=== PATIENT | female | born 1985 | race Caucasian/White ===

== ENCOUNTER 2017-10-14 00:20 | Inpatient (IN) | payer BC ==
[~2017-10-14] VITALS: Ht 175.3 cm; Wt 129.3 kg
[2017-10-14] MEDS ORDERED: LR 1,000 ML IV SCH ×3 (00:35→13:14)
[2017-10-14] MEDS ORDERED: AMPICILLIN SODIUM 2 GM in NS 100 ML IV ONE (01:00)
[2017-10-14] MEDS ORDERED: AMPICILLIN SODIUM 2 GM VIAL ONE (01:00)
[2017-10-14] MEDS ORDERED: CEFAZOLIN 2 GM IVPB PREMIX 50 ML IV SCH (01:00)
[2017-10-14 01:09] LABS: BASOPHILS % (AUTO) 0.2 % (0.0-2.0); EOSINOPHILS % (AUTO) 0.3 % (0.0-4.0); HEMATOCRIT 37.2 % (36-48); HEMOGLOBIN 12.4 g/dL (12.0-16.0); LYMPHOCYTES % (AUTO) 21.6 % (20.5-51.5); MEAN CORPUSCULAR HEMOGLOBIN 31 pg (27-31); MEAN CORPUSCULAR HGB CONC 33 % (32-36); MEAN CORPUSCULAR VOLUME 92 fL (79.0-98.0); MONOCYTES # (AUTO) 0.6 K/uL (0.0-1.0); MONOCYTES % (AUTO) 6.7 % (1.7-9.3); NEUTROPHILS # (AUTO) 6.6 K/uL (1.8-7.7); NEUTROPHILS % (AUTO) 71.2 % (40.0-70.0); PLATELET COUNT (AUTO) 270 K/uL (130-430); RED BLOOD CELL COUNT(AUTO) 4.05 MIL/uL (4.2-6.2); RED CELL DISTRIBUTION WIDTH 13.3 % (9.0-15.0); WHITE BLOOD COUNT (AUTO) 9.2 K/uL (4.8-10.8)
[2017-10-14] MEDS ORDERED: TERBUTALINE SULFATE 1 MG/ML VIAL SUBCUT ONE (02:00)
[2017-10-14] MEDS ORDERED: AMPICILLIN SODIUM 1 GM in NS 50 ML IV SCH (05:00)
[2017-10-14] MEDS ORDERED: AMPICILLIN SODIUM 1 GM VIAL ONE (05:24)
[2017-10-14] MEDS ORDERED: ONDANSETRON HCL 4 MG/2 ML VIAL IVP PRN (09:45)
[2017-10-14] MEDS ORDERED: DIPHENHYDRAMINE INJ 50 MG/ML VIAL IM PRN (09:45)
[2017-10-14] MEDS ORDERED: MORPHINE SULFATE 10MG/10ML PF AMP SP SCH (09:45)
[2017-10-14] MEDS ORDERED: NALOXONE HCL 0.4 MG/ML AMP (NARCAN) IVP PRN (09:45)
[2017-10-14] MEDS ORDERED: KETOROLAC TROMETHAMINE 60 MG/2 ML VIAL IM PRN (09:45)
[2017-10-14] MEDS ORDERED: MIDAZOLAM HCL 5 MG/ML VIAL (VERSED) IV ONE (10:05)
[2017-10-14] MEDS ORDERED: OXYTOCIN 10 UNIT/ML VIAL IV ONE (10:05)
[2017-10-14] MEDS ORDERED: ONDANSETRON HCL 4 MG/2 ML VIAL IVP ONE (10:05)
[2017-10-14] MEDS ORDERED: LR 1,000 ML IV.SOLN IV ONE (10:05)
[2017-10-14] MEDS ORDERED: MORPHINE SULFATE 10MG/10ML PF AMP EP ONE (10:05)
[2017-10-14] MEDS ORDERED: NS IRRIG SOLN 1000 ML IR ONE (10:05)
[2017-10-14] MEDS ORDERED: DIPHENHYDRAMINE INJ 50 MG/ML VIAL ONE (10:10)
[2017-10-14 10:22] VITALS: BP_SYST 101
[2017-10-14] MEDS ORDERED: OXYTOCIN/NORMAL SALINE 1,000 ML IV ONE ×2 (10:38→13:14)
[2017-10-14] MEDS ORDERED: SENNOSIDES/DOCUSATE SODIUM 1 TAB TABLET(SENOKOT-S) PO PRN (13:15)
[2017-10-14] MEDS ORDERED: SIMETHICONE 80 MG TAB.CHEW PO PRN (13:15)
[2017-10-14] MEDS ORDERED: ANUSOL 1 EA SUPP.RECT (PREPARATION H) RC PRN (13:15)
[2017-10-14] MEDS ORDERED: MEASLES,MUMPS&RUBELLA VACC/PF 12500 UNIT/0.5 ML VIAL SUBQ PRN (13:15)
[2017-10-14] MEDS ORDERED: RHO(D) IMMUNE GLOBULIN/MALTOSE 1500 UNITS/1.3 ML (WINHRO) IM PRN (13:15)
[2017-10-14] MEDS ORDERED: HYDROcodone/ACETAMIN 5-325 MG TAB (NORCO/ VICODIN) PO PRN (13:15)
[2017-10-14] MEDS ORDERED: OXYCODONE/ACETAMINOPHEN 5-325 TABLET PO PRN (13:15)
[2017-10-14] MEDS ORDERED: BISACODYL 10 MG/SUPPOSITORY RC PRN (13:15)
[2017-10-14] MEDS ORDERED: LANOLIN 7 GM OINT. TP PRN (13:15)
[2017-10-14] MEDS: CEFAZOLIN 1 GM IVPB PREMIX 50 ML IV SCH (15:35)
[2017-10-14] MEDS: KETOROLAC TROMETHAMINE 30 MG VIAL IVP SCH (18:55)
[2017-10-14] MEDS ORDERED: TEMAZEPAM 15 MG CAPSULE PO PRN (21:00)
[2017-10-15] MEDS: KETOROLAC TROMETHAMINE 30 MG VIAL IVP SCH ×3 (00:21→11:57)
[2017-10-15] MEDS: CEFAZOLIN 1 GM IVPB PREMIX 50 ML IV SCH ×2 (00:21→06:05)
[2017-10-15 06:21] LABS: BASOPHILS % (AUTO) 0.1 % (0.0-2.0); EOSINOPHILS % (AUTO) 0.2 % (0.0-4.0); HEMATOCRIT 30.3 % (36-48); HEMOGLOBIN 10.3 g/dL (12.0-16.0); LYMPHOCYTES % (AUTO) 21.5 % (20.5-51.5); MEAN CORPUSCULAR HEMOGLOBIN 31 pg (27-31); MEAN CORPUSCULAR HGB CONC 34 % (32-36); MEAN CORPUSCULAR VOLUME 91 fL (79.0-98.0); MONOCYTES # (AUTO) 0.7 K/uL (0.0-1.0); MONOCYTES % (AUTO) 7.3 % (1.7-9.3); NEUTROPHILS # (AUTO) 6.5 K/uL (1.8-7.7); NEUTROPHILS % (AUTO) 70.9 % (40.0-70.0); PLATELET COUNT (AUTO) 213 K/uL (130-430); RED BLOOD CELL COUNT(AUTO) 3.32 MIL/uL (4.2-6.2); RED CELL DISTRIBUTION WIDTH 12.9 % (9.0-15.0); WHITE BLOOD COUNT (AUTO) 9.2 K/uL (4.8-10.8)
[2017-10-15] MEDS: OXYCODONE/ACETAMINOPHEN 5-325 TABLET PO PRN (07:50)
[2017-10-15] MEDS: IBUPROFEN 600 MG TABLET PO SCH ×2 (18:51→23:56)
[2017-10-15] MEDS: DOCUSATE SODIUM 100 MG CAPSULE PO PRN (21:35)
[2017-10-16] MEDS: IBUPROFEN 600 MG TABLET PO SCH ×2 (06:02→12:03)
[2017-10-16] MEDS: DOCUSATE SODIUM 100 MG CAPSULE PO PRN (08:30)
[2017-10-16] MEDS: OXYCODONE/ACETAMINOPHEN 5-325 TABLET PO PRN ×2 (08:32→12:29)
== END 2017-10-16 15:55 | disposition home or self-care (01) | DRG 766 ==
LOC: SPU 00:20
PROVIDERS: ADMIT Specialist; ATTEND Specialist
PROC: 10D00Z1 Extraction of Products of Conception, Low, Open Approach (ICD-10-PCS; principal; 2017-10-15)
PROC: 0UL70CZ Occlusion of Bilateral Fallopian Tubes with Extraluminal Device, Open Approach (ICD-10-PCS; 2017-10-15)
DX: O42.913 Preterm premature rupture of membranes, unspecified as to length of time between rupture and onset of labor, third trimester (principal); O34.211 Maternal care for low transverse scar from previous cesarean delivery; Z37.0 Single live birth; Z3A.36 36 weeks gestation of pregnancy
CPT/HCPCS: 36415; 85025; 86592; 86886; 86900; 86901; 94760; J0290; J0690; J1200; J1885; J2250; J2274; J2405; J2590; J3105; J7120